=== PATIENT | female | born 1955 | race Hispanic/Latino ===

== ENCOUNTER → 2019-05-09 | Day surgery (SDC) | payer OTHER ==
[~2019-05-09] MED LIST: FENTANYL CITRATE/PF 100MCG/2 ML INJ ONE; GLUCAGON FOR INJ 1 MG VIAL ONE; HYOSCYAMINE 0.125 MG TAB ONE; LIDOCAINE HCL 2% LOCAL INJ 5 ML SDV VIAL INJ ONE; LISINOPRIL2.5 MG PO; METFORMIN HCL500 M2 PO; METOCLOPRAMIDE HCL 10 MG/2ML VIAL ONE; PROPOFOL IV EMULSION 10 MG/ML 50 ML VIAL ONE
--- NOTE | 2019-05-09 19:08 | Operative Report ---
DATE OF PROCEDURE: 05/09/2019 SURGEON: Adrian Allen MD PROCEDURE: Esophagogastroduodenoscopy with biopsies and colonoscopy with polypectomy and biopsies. INDICATIONS FOR EGD: Nausea, heartburn, bloating. INDICATIONS FOR COLONOSCOPY: Colorectal cancer screening, lower abdominal pain, and history of intermittent diarrhea. MEDICATIONS: The patient was done under MAC, please see anesthesiologist's note. PROCEDURE IN DETAIL: With the patient in the left lateral decubitus position, flexible fiberoptic Olympus gastroscope was introduced into the esophagus under direct visualization without any difficulty. There was some patchy erythema noted in distal esophagus. Minute tongues of velvety red mucosa were noted to extend proximally from the GE junction and biopsies were obtained to rule out Lawler's. The scope was then advanced with ease into the stomach traversing a small sliding hiatal hernia. Mucosa overlying the antrum and the body revealed some patchy erythema and [id number] edema and biopsies were obtained and sent to stain for H pylori. The pylorus was of normal contour and shape, it was intubated with ease and the scope was advanced all the way to the second portion of the duodenum. Biopsies were obtained from the second portion and the duodenal bulb to rule out sprue. The scope was then withdrawn back into the stomach and retroflexed and mucosa overlying the fundus and the cardia appeared to be within normal limits. The scope was then straightened out, it was subsequently withdrawn. The patient tolerated procedure well. IMPRESSION: 1. Distal esophagitis, mild. 2. Rule out Lawler's esophagus. 3. Small sliding hiatal hernia. 4. Gastritis, biopsied, biopsies sent to stain for H pylori. 5. Rule out sprue. PLAN: Follow up histology. Initiate Protonix 40 mg one p.o. q.a.m. a.c. PROCEDURE IN DETAIL: The patient was then turned around. After adequate lubrication of the anal canal, flexible fiberoptic Olympus colonoscope was inserted into the rectum with ease and advanced all the way to the cecum. Mucosa overlying the cecum appeared to be within normal limits. The scope was then withdrawn slowly and mucosa overlying the ascending and the transverse appeared to be within normal limits. The mucosa overlying the distal descending and the sigmoid colon revealed some patchy areas of low-grade edema and erythema and biopsies were obtained. Diverticular disease was noted in the sigmoid colon. One polyp was hot biopsied from the rectum. The scope was then retroflexed into the distal rectum and small internal hemorrhoids were noted, none of which was actively bleeding. The scope was then straightened out, it was subsequently withdrawn. The patient tolerated the procedure well. IMPRESSION: 1. Mild patchy segmental colitis, left colon. 2. Diverticulosis. 3. Rectal polyp, hot biopsied. 4. Internal hemorrhoids, none actively bleeding. PLAN: Follow up histology. Initiate Flagyl 500 mg one p.o. q.i.d. x14 days and Levaquin 500 mg one p.o. daily x14 days. Start VSL#3 one p.o. daily. The patient might benefit from a followup colonoscopy in 5 years. Adrian Allen MD [facility] [place][id number] cc: Osiris Monson MD
== END | disposition home or self-care (01) ==
LOC: OR 12:13
PROVIDERS: ATTEND Internal Medicine Gastroenterology
DX: K29.70 Gastritis, unspecified, without bleeding (principal); K62.1 Rectal polyp; K50.10 Crohn's disease of large intestine without complications; K20.9 Esophagitis, unspecified; K22.8 Other specified diseases of esophagus; K59.09 Other constipation; K21.9 Gastro-esophageal reflux disease without esophagitis; K44.9 Diaphragmatic hernia without obstruction or gangrene; K57.30 Diverticulosis of large intestine without perforation or abscess without bleeding; K64.8 Other hemorrhoids; I10 Essential (primary) hypertension; E11.9 Type 2 diabetes mellitus without complications; Z88.2 Allergy status to sulfonamides; Z01.810 Encounter for preprocedural cardiovascular examination; Z79.84 Long term (current) use of oral hypoglycemic drugs; Z68.34 Body mass index [BMI] 34.0-34.9, adult
CPT/HCPCS: 43239; 45380; 45384; 93005; J1610; J2001; J2704; J2765; J3010